=== PATIENT | female | born 1965 | race Caucasian/White ===

== ENCOUNTER 2024-03-11 11:27 | Day surgery (SDC) | payer BC ==
[2024-03-11] MEDS: Lactated Ringers 1,000 ML IV SCH (11:39)
== END 2024-03-11 13:05 | disposition home or self-care (01) ==
LOC: CC.SDS 11:27
PROVIDERS: ATTEND Family Medicine
DX: Z12.11 Encounter for screening for malignant neoplasm of colon (principal); K57.30 Diverticulosis of large intestine without perforation or abscess without bleeding; E78.5 Hyperlipidemia, unspecified; E66.3 Overweight; Z79.890 Hormone replacement therapy; Z79.899 Other long term (current) drug therapy; Z68.27 Body mass index [BMI] 27.0-27.9, adult; Z86.010 Personal history of colon polyps; Z80.0 Family history of malignant neoplasm of digestive organs
CPT/HCPCS: J7120